=== PATIENT | female | born 1950 | race Caucasian/White ===

== ENCOUNTER 2018-07-11 02:50 | Inpatient (IN) ==
--- NOTE | 2018-07-02 08:28 | EKG Report ---
Test Performed on : 07/02/2018 08:12:01 AM Test Reason : PAT Blood Pressure : / mmHG Vent. Rate : 056 BPM Atrial Rate : 056 BPM P-R Int : 214 ms QRS Dur : 088 ms QT Int : 422 ms P-R-T Axes : 071 076 077 degrees QTc Int : 407 ms Sinus bradycardia. with 1st degree AV block. Minimal voltage criteria for LVH, may be normal variant Septal infarct , age undetermined Abnormal ECG When compared with ECG of 14-JAN-2015 18:34, Septal infarct is now present Nonspecific T wave abnormality no longer evident in Inferior leads Nonspecific T wave abnormality no longer evident in Lateral leads QT has shortened Confirmed by Eva WATSON, Mega Vora ([id number]) on 07/02/2018 8:43:10 AM
[2018-07-02 09:16] LABS: URINE SOURCE CLEAN CATCH
[2018-07-02 09:18] LABS: BASO# 0.03 X1000 (0.0-0.2); BASO% 0.4 % (0.0-0.8); EOS# 0.44 X1000 (0.0-0.7); EOS% 6.2 % (0.0-10.0); HEMATOCRIT 41.5 % (37.0-47.0); HEMOGLOBIN 13.5 g/dL (12.0-16.0); LYMPH# 1.45 X1000 (1.2-3.4); LYMPH% 20.4 % (20.5-51.1); MCH 29.8 PG (27-31); MCHC 32.5 g/dL (33-37); MCV 91.6 FL (81-99); MONO# 0.68 X1000 (0.11-0.59); MONO% 9.6 % (1.7-9.3); MPV 9.2 FL (7.4-10.4); NEUT# 4.52 X1000 (1.4-6.5); NEUT% 63.4 % (42.2-75.2); PLT 271 X1000 (130-400); RBC 4.53 XMIL (4.2-5.4); RDW 12.5 % (11.5-14.5); WBC 7.12 X1000 (4.8-10.8)
[2018-07-02 09:27] LABS: BILIRUBIN URINE NEGATIVE (NEGATIVE); BLOOD URINE NEGATIVE (NEGATIVE); COLOR YELLOW; GLUCOSE URINE NEGATIVE (NEGATIVE); KETONE URINE NEGATIVE (NEGATIVE); LEUKOCYTES URINE NEGATIVE (NEGATIVE); NITRITE URINE NEGATIVE (NEGATIVE); PROTEIN URINE TRACE mg/dL (NEGATIVE); SP GRAVITY URINE 1.014; TURBIDITY URINE CLEAR (CLEAR); UROBILINOGEN URINE NORMAL (NORMAL)
[2018-07-02 09:29] LABS: UR EPITHELIAL CELLS <10 /HPF (<10); URINE BACTERIA NEGATIVE /HPF; URINE RBC <10 /HPF (<10); URINE WBC <10 /HPF (<10)
[2018-07-02 09:31] LABS: INR 0.99; PROTIME 13.8 Seconds (11.0-16.0); PTT 26.1 Seconds (22.3-41.8)
[2018-07-02 09:58] LABS: AGAP 11; BUN 10 mg/dL (8-22); CHLORIDE 100 mmol/L (98-107); COSMO 273; CREATININE 0.7 mg/dL (0.5-0.9); ESTIMATED GFR > 60; GLUCOSE 102 mg/dL (70-104); POTASSIUM 4.5 mmol/L (3.5-5.1); SODIUM 137 mmol/L (136-145); TCO2 26 mmol/L (25-35)
[2018-07-11] MEDS ORDERED: REGLAN ONE (10:25)
[2018-07-11] MEDS ORDERED: LR 1,000 ML ONE (10:25)
[2018-07-11] MEDS ORDERED: COLACE ONE (10:25)
[2018-07-11] MEDS ORDERED: KEFZOL 1 GM/D5W 2 GM/100 ML IVPB ONE (10:25)
[2018-07-11] MEDS ORDERED: LYRICA ONE (10:25)
[2018-07-11] MEDS ORDERED: PEPCID ONE (10:25)
[2018-07-11] MEDS ORDERED: SENSORCAINE-MPF 0.5%/EPI 1:200,000 ONE (10:59)
[2018-07-11] MEDS ORDERED: DURAMORPH ONE (10:59)
[2018-07-11] MEDS ORDERED: EXPAREL 1.3% ONE (10:59)
[2018-07-11] MEDS ORDERED: CYKLOKAPRON 1,000 MG/NS 1,000 MG/100 ML IVPB ONE (10:59)
[2018-07-11] MEDS ORDERED: NEOSPORIN G.U. IRRIGANT ONE (10:59)
[2018-07-11] MEDS ORDERED: SODIUM CHLORIDE 0.9% ONE (10:59)
[2018-07-11] MEDS ORDERED: TORADOL ONE (10:59)
[2018-07-11] MEDS ORDERED: DIPRIVAN 1% 500 MG/50 ML BOTTLE ONE (11:36)
[2018-07-11] MEDS ORDERED: XYLOCAINE-MPF 2% ONE (12:30)
[2018-07-11] MEDS ORDERED: EPHEDRINE ONE (12:35)
[2018-07-11] MEDS ORDERED: DECADRON ONE (13:18)
[2018-07-11] MEDS ORDERED: ZOFRAN ONE (13:18)
[2018-07-11] MEDS ORDERED: OFIRMEV 1000 MG/ISOTONIC SOLN 1,000 MG/100 ML BOTTLE ONE (13:18)
[2018-07-11 14:10] LABS: URINE SOURCE CATH
[2018-07-11 14:22] LABS: BILIRUBIN URINE NEGATIVE (NEGATIVE); BLOOD URINE NEGATIVE (NEGATIVE); COLOR YELLOW; GLUCOSE URINE NEGATIVE (NEGATIVE); KETONE URINE TRACE mg/dL (NEGATIVE); LEUKOCYTES URINE NEGATIVE (NEGATIVE); NITRITE URINE NEGATIVE (NEGATIVE); PH URINE 6.5; PROTEIN URINE 30 mg/dL (NEGATIVE); TURBIDITY URINE CLEAR (CLEAR); UROBILINOGEN URINE NORMAL (NORMAL)
[2018-07-11 14:24] LABS: UR EPITHELIAL CELLS <10 /HPF (<10); URINE BACTERIA NEGATIVE /HPF; URINE RBC <10 /HPF (<10); URINE WBC <10 /HPF (<10)
[2018-07-11] MEDS ORDERED: NS 1,000 ML ONE (14:32)
[2018-07-11] MEDS ORDERED: ZOFRAN ODT PO PRN (15:45)
[2018-07-11] MEDS ORDERED: ZOFRAN IV PRN (15:45)
[2018-07-11] MEDS ORDERED: OXY IR PO PRN (15:45)
--- NOTE | 2018-07-11 17:55 | OPERATIVE NOTE ---
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 POSTOP DIAGNOSIS: Degenerative joint disease of the hip with impacted right femoral neck fracture. PROCEDURE: Direct anterior right total hip replacement. SURGEON: Jon Gomez MD. RESERVATION CLERK: FILIPPO Brown. Mr. Wade was necessary for proper retraction and manipulation of the hip during the surgery ANESTHESIA: Spinal. COMPLICATION: None. PROCEDURE IN DETAIL: 68-year-old female presents for surgical total hip replacement of the right hip. Risks, benefits, and no guarantees were discussed and she is willing to proceed. She was taken to the operating room and satisfactory anesthesia obtained. The right hip was prepped and draped in usual sterile fashion. A time-out was taken to confirm operative site, procedure, and patient. She was positioned on the [place] table and the right hip prepped and draped in usual sterile fashion. An anterior approach to the right hip was undertaken with an incision starting 1 cm distal and lateral to the anterior superior iliac spine and carried over the tensor fascia juan josé for 10 cm. Dissection was carried down through the skin and subcutaneous fat to the fascia of the tensor. This was split in line with the incision. Blunt dissection along the inner membrane of the tensor was undertaken down to the anterior hip capsule. Cobra retractors were placed over the superior and inferior aspect of the femoral neck and a capsulotomy incision made to expose the joint. The C-arm was used to establish an AP pelvis for referencing of leg lengths. Roughly half a centimeter of shortening of the leg was noted from previous impacted femoral neck fracture at this site. After establishing an AP pelvis, a femoral neck osteotomy was made and the femoral head removed. A small Cobra retractor was placed directly on the anterior acetabular bone to prevent injury to the anterior neurovascular structures during reaming and allow for visualization of the acetabulum. Sequential reaming up to a 55 reamer was undertaken. A DePuy DuoFix YOUNG coated 56 outer diameter cup was impacted into the acetabulum under fluoroscopic guidance in roughly 45 degrees of abduction and 10 to 15 degrees of anteversion with secure fixation. A 25 length screw was placed in the 12 o'clock position the cup for additional security. A 0 degree 36 mm inner diameter polyethylene bearing was impacted into the cup. The bearing cup interface was checked as well as cup bone interface and both noted to be stable. Traction was released off the leg and the hip extended and externally rotated to facilitate broaching of the proximal femur. Using the Waterfallis broach system, a sequential broaching of the proximal femur was undertaken up to a size 7 broach. A standard neck geometry with a +5 head length revealed religious of normal leg lengths as close to possible and good stability of the hip. The trial femoral implant was removed and an Actis size 7 stem was impacted in the proximal femur with secure axial and rotational stability. A 36 mm ceramic head with a +5 neck length was impacted onto this and the hip reduced. The C-arm was used to verify accurate geometry of the placement of the components as well as religious of leg lengths. The hip was extended all the way to the floor and externally rotated to 75 degrees without dislocation. The wound was copiously irrigated with irrigant. A Hemovac drain was placed. The joint capsule and skin was injected with Exparel for pain management. The wound was copiously irrigated with irrigant and then closed over the drain with a V-Loc running suture in the fascia of the tensor fascia, 2-0 suture in the subcutaneous and skin fabio on the skin edges. Sterile dressings completed the closure and the patient was recovered from anesthesia and transferred to the recovery room in stable condition. No intraoperative complications were noted. Instrument count and sponge count was correct at the time of closure. cc: Monty Gomez MD
[2018-07-11] MEDS ORDERED: CYKLOKAPRON 1,000 MG in NS 100 ML IV SCH (18:45)
[2018-07-11] MEDS: KEFZOL 2 GM in NS 100 ML IV SCH (19:00)
[2018-07-11] MEDS: TYLENOL PO SCH ×2 (19:00→22:21)
[2018-07-11] MEDS: COLACE PO SCH (22:21)
[2018-07-11] MEDS: PERIDEX MT SCH (22:21)
[2018-07-12] MEDS: NS 1,000 ML IV SCH ×2 (01:20→06:22)
[2018-07-12] MEDS: OXY IR PO PRN ×3 (02:48→13:01)
[2018-07-12] MEDS: ZOFRAN ODT PO PRN ×2 (02:49→09:25)
[2018-07-12] MEDS: KEFZOL 2 GM in NS 100 ML IV SCH (02:52)
[2018-07-12] MEDS: TYLENOL PO SCH ×2 (05:46→09:25)
[2018-07-12 06:28] LABS: HEMATOCRIT 36.3 % (37.0-47.0); HEMOGLOBIN 11.8 g/dL (12.0-16.0)
[2018-07-12 06:46] LABS: AGAP 9; BUN 12 mg/dL (8-22); CALCIUM 8.3 mg/dL (8.8-10.2); CHLORIDE 103 mmol/L (98-107); COSMO 278; CREATININE 0.6 mg/dL (0.5-0.9); ESTIMATED GFR > 60; GLUCOSE 138 mg/dL (70-104); POTASSIUM 4.7 mmol/L (3.5-5.1); SODIUM 138 mmol/L (136-145); TCO2 26 mmol/L (25-35)
[2018-07-12] MEDS ORDERED: ASPIRIN PO SCH (09:00)
[2018-07-12] MEDS ORDERED: MOBIC PO SCH (09:00)
[2018-07-12] MEDS: COLACE PO SCH (09:25)
[2018-07-12] MEDS: PERIDEX MT SCH (09:26)
--- NOTE | 2018-07-12 10:09 | PROGRESS NOTE ---
DATE: 07/12/2018 SUBJECTIVE: Ms. Rodriguez seen status post anterior hip replacement. At the present time, she is afebrile with stable vital signs. Her bandages are clean and dry. There are no signs of active bleeding. She appears to be motor and sensory intact. Her hematocrit is stable. She is mobilized with therapy today. She can be discharged home today for outpatient followup. She can return in the interim for any worsening signs or symptoms. She is discharged home with her regular medicines, aspirin once a day for DVT prophylaxis and [place] 7.5 as needed for pain. cc: Monty Gomez MD
[2018-07-12 12:13] VITALS: BP 107/75
== END 2018-07-12 14:00 | disposition home health service (06) | DRG 470 ==
LOC: SURHOLD 02:50 → 4N 15:13
PROVIDERS: ADMIT Orthopaedic Surgery Adult Reconstructive Orthopaedic Surgery; ATTEND Orthopaedic Surgery Adult Reconstructive Orthopaedic Surgery
CPT/HCPCS: 76000; 80048; 81001; 85014; 85018; 85025; 85610; 85730; 86850; 86900; 86901; 93005; 93010; 94761; 94799; 97161; 97530; A9270; C9290; J0131; J0690; J1100; J1885; J2274; J2275; J2405; J7030; J7120; Q9974

== ENCOUNTER 2018-09-09 14:10 | Inpatient (IN) ==
[2018-09-09 18:32] LABS: BASO# 0.03 X1000 (0.0-0.2); BASO% 0.6 % (0.0-0.8); EOS# 0.29 X1000 (0.0-0.7); HEMATOCRIT 41.1 % (37.0-47.0); HEMOGLOBIN 13.2 g/dL (12.0-16.0); LYMPH# 1.57 X1000 (1.2-3.4); LYMPH% 32.4 % (20.5-51.1); MCH 29.5 PG (27-31); MCHC 32.1 g/dL (33-37); MCV 91.9 FL (81-99); MONO# 0.51 X1000 (0.11-0.59); MONO% 10.5 % (1.7-9.3); MPV 10.3 FL (7.4-10.4); NEUT# 2.45 X1000 (1.4-6.5); NEUT% 50.5 % (42.2-75.2); PLT 241 X1000 (130-400); RBC 4.47 XMIL (4.2-5.4); RDW 12.7 % (11.5-14.5); WBC 4.85 X1000 (4.8-10.8)
[2018-09-09] MEDS: ROCEPHIN 1 GM in NS 50 ML IV SCH (18:37)
[2018-09-09] MEDS: LOVENOX SUBQ SCH (18:37)
[2018-09-09 18:57] LABS: AGAP 9; ALB/GLOB RATIO 1.2; ALBUMIN 3.7 g/dL (3.5-5.0); ALKALINE PHOSPHATASE 103 U/L (32-104); BUN 5 mg/dL (8-22); CALCIUM 9.1 mg/dL (8.8-10.2); CHLORIDE 104 mmol/L (98-107); COSMO 278; CREATININE 0.7 mg/dL (0.5-0.9); ESTIMATED GFR > 60; GLUCOSE 93 mg/dL (70-104); GOT 13 U/L (10-30); GPT 10 U/L (10-36); POTASSIUM 3.9 mmol/L (3.5-5.1); SODIUM 141 mmol/L (136-145); TCO2 28 mmol/L (25-35); TOTAL BILIRUBIN 0.45 mg/dL (0.20-1.00); TOTAL PROTEIN 6.9 g/dL (6.3-8.3)
[2018-09-09 19:28] LABS: URINE SOURCE CLEAN CATCH
[2018-09-09 19:32] LABS: BILIRUBIN URINE NEGATIVE (NEGATIVE); BLOOD URINE NEGATIVE (NEGATIVE); COLOR STRAW; GLUCOSE URINE NEGATIVE (NEGATIVE); KETONE URINE NEGATIVE (NEGATIVE); LEUKOCYTES URINE NEGATIVE (NEGATIVE); NITRITE URINE NEGATIVE (NEGATIVE); PROTEIN URINE NEGATIVE (NEGATIVE); TURBIDITY URINE CLEAR (CLEAR); UROBILINOGEN URINE NORMAL (NORMAL)
[2018-09-09 19:33] LABS: UR EPITHELIAL CELLS <10 /HPF (<10); URINE BACTERIA NEGATIVE /HPF; URINE RBC <10 /HPF (<10); URINE WBC <10 /HPF (<10)
[2018-09-09] MEDS: DUONEB (A & A) INH SCH (21:19)
[2018-09-09] MEDS: NS IV SCH (21:21)
[2018-09-09] MEDS: XANAX PO SCH (21:21)
[2018-09-09] MEDS: CLINDAMYCIN IV SCH (21:21)
[2018-09-10] MEDS: LOVENOX SUBQ SCH ×2 (06:05→17:08)
[2018-09-10] MEDS: PRILOSEC PO SCH (06:05)
--- NOTE | 2018-09-10 06:22 | Diag Imaging Result Doc PS360 ---
CHEST-2 VIEWS - 09/09/2018 INDICATION: dvt right leg COMPARISON: 11/06/2016 FINDINGS: There are some stable minimal linear scarring in the lateral right upper lobe. The lungs are clear. Heart size is normal. No pneumothorax or pleural effusion. IMPRESSION: Negative exam. Electronically signed by Stuart Recio 09/10/2018 6:20 AM
[2018-09-10] MEDS: ULTRAM PO SCH ×4 (06:33→21:33)
[2018-09-10] MEDS: DUONEB (A & A) INH SCH ×4 (07:28→20:04)
--- NOTE | 2018-09-10 08:51 | EKG Report ---
Test Performed on : 09/09/2018 6:10:44 PM Test Reason : dvt right leg Blood Pressure : / mmHG Vent. Rate : 065 BPM Atrial Rate : 065 BPM P-R Int : 214 ms QRS Dur : 104 ms QT Int : 450 ms P-R-T Axes : 076 052 079 degrees QTc Int : 468 ms Sinus rhythm. with 1st degree AV block. Left ventricular hypertrophy with repolarization abnormality Abnormal ECG When compared with ECG of 02-JUL-2018 08:12, Criteria for Septal infarct are no longer present ST now depressed in Lateral leads T wave inversion now evident in Lateral leads QT has lengthened Confirmed by Clem WATSON, Denis ([id number]) on 09/10/2018 8:56:23 AM
[2018-09-10] MEDS ORDERED: ZOFRAN IV PRN (08:57)
[2018-09-10] MEDS: NS IV SCH ×2 (09:02→21:34)
[2018-09-10] MEDS: CLINDAMYCIN IV SCH ×2 (09:02→21:34)
[2018-09-10] MEDS: LEXAPRO PO SCH (09:02)
[2018-09-10] MEDS: TENORMIN PO SCH (09:02)
[2018-09-10] MEDS: XANAX PO SCH ×2 (09:02→21:33)
--- NOTE | 2018-09-10 09:08 | PROGRESS NOTE ---
DATE: 09/10/2018 SUBJECTIVE: Ms. Chicas is doing somewhat better this morning. The leg edema is less. She has elastic stockings put in. She is on IV clindamycin, as well as Rocephin and Lovenox. We will continue the current management of her. cc: Denis Nj MD
[2018-09-10] MEDS: XARELTO PO SCH ×2 (09:24→21:33)
--- NOTE | 2018-09-10 09:29 | HISTORY AND PHYSICAL ---
HISTORY OF PRESENT ILLNESS: Mrs. Rodriguez is a 68-year-old white female was admitted because of cellulitis on both legs and deep vein thrombosis involving the right calf and right thigh veins. She had a right hip surgery following a fracture of the right hip about 6 weeks ago and thereafter she did well. However, she had a cat bite about 2 days ago at nighttime. She came and she had some cellulitis, was prescribed clindamycin. She had a right leg ultrasound done for to rule out DVT and was found to have DVT. The cellulitis was getting worse hence she came to the office. She had bilateral cellulitis more on the right and history of recent deep vein thrombosis. PAST SURGICAL HISTORY: Reveals history of left ankle fracture surgery. This was done by Dr. Gomez and right hip surgery was done by Dr. Gomez also. She also had a hysterectomy. She still smokes some, has mild COPD and has history of hypertension. Severe degenerative arthritis in both knees. She does not drink. She has a lot of pets in her house and stays busy taking care of them. REVIEW OF SYSTEMS: Other than swelling of the right leg with some discomfort, it is noncontributory. PHYSICAL EXAMINATION: The patient is alert. VITAL SIGNS: Reveal temperature 98.1 degrees Fahrenheit, pulse 66 per minute, respiratory rate 19 per minute, blood pressure 139/59. HEENT: Head normocephalic, pupils PERRLA. Fundus examination not done. NECK: Supple. JVP normal. ENT examination unremarkable. There is no evidence of lymphadenopathy, thyroid enlargement, anemia, cyanosis or clubbing. EXTREMITIES: Bilateral pedal edema, more on the right side, especially in the calf area. There is some redness of the skin which is tender and evidence of cellulitis in both legs more on the right side. I do not see any definite ulceration or puncture wound because of the cat bite. Pedal pulses well felt. BREAST EXAM: Normal chest normal on inspection. LUNGS: Clear on auscultation. PMI in the normal position. HEART: Sounds normal. No murmur, gallop or rub noted. ABDOMEN: Nondistended. Hernial orifices normal. No guarding, rigidity, free fluid, masses, or organomegaly. Bowel sounds normal. RECTAL: Deferred. SOFTWARE DEVELOPMENT INTERN: Higher functions normal. Cranial nerves normal. Motor and sensory system examination unremarkable. Deep tendon reflexes normal. Plantar is downgoing and spine examination normal for age. No cerebellar signs or signs of meningeal irritation local motor exam. SKIN: Unremarkable except for cellulitis. IMPRESSION: 1. Bilateral leg cellulitis. 2. Deep venous thrombosis in the right leg and right thigh veins. 3. Hypertension. 4. Degenerative arthritis. 5. Mild chronic obstructive pulmonary disease. cc: Denis Nj MD
[2018-09-10] MEDS: ROCEPHIN 1 GM in NS 50 ML IV SCH (17:07)
[2018-09-11] MEDS: LOVENOX SUBQ SCH ×2 (06:30→17:57)
[2018-09-11] MEDS: PRILOSEC PO SCH (06:30)
[2018-09-11] MEDS: DUONEB (A & A) INH SCH ×4 (07:28→20:02)
[2018-09-11] MEDS: CLINDAMYCIN IV SCH ×2 (09:26→21:00)
[2018-09-11] MEDS: NS IV SCH ×2 (09:26→21:00)
[2018-09-11] MEDS: XANAX PO SCH ×2 (09:27→20:48)
[2018-09-11] MEDS: ULTRAM PO SCH ×3 (09:27→20:49)
[2018-09-11] MEDS: TENORMIN PO SCH (09:27)
[2018-09-11] MEDS: LEXAPRO PO SCH (09:27)
[2018-09-11] MEDS: XARELTO PO SCH ×2 (09:27→20:48)
--- NOTE | 2018-09-11 09:28 | PROGRESS NOTE ---
DATE: 09/11/2018 Ms. Rodriguez is feeling better. She has some itching underneath the elastic stockings at the area of cellulitis. Leg edema is better. We are going to continue the current management on her. We will apply skin cream twice a day. IMPRESSION: DVT. Right leg cellulitis both legs. cc: Denis Nj MD
[2018-09-11] MEDS: ROCEPHIN 1 GM in NS 50 ML IV SCH (17:57)
[2018-09-11] MEDS: VALISONE 0.1% CREAM TOP SCH (20:50)
[2018-09-12] MEDS: LOVENOX SUBQ SCH (06:41)
[2018-09-12] MEDS: PRILOSEC PO SCH (06:42)
[2018-09-12] MEDS: LEXAPRO PO SCH (09:01)
[2018-09-12] MEDS: ULTRAM PO SCH (09:01)
[2018-09-12] MEDS: TENORMIN PO SCH (09:01)
[2018-09-12] MEDS: XANAX PO SCH (09:01)
[2018-09-12] MEDS: NS IV SCH (09:01)
[2018-09-12] MEDS: XARELTO PO SCH (09:01)
[2018-09-12] MEDS: CLINDAMYCIN IV SCH (09:01)
[2018-09-12] MEDS: VALISONE 0.1% CREAM TOP SCH (09:02)
[2018-09-12] MEDS: DUONEB (A & A) INH SCH (09:10)
--- NOTE | 2018-09-12 12:15 | PROGRESS NOTE ---
DATE: 09/12/2018 SUBJECTIVE: Ms. Keiko Brandon is doing better. The leg swelling is better. Cellulitis has improved. I am going to discharge her with a prescription of Xarelto and Levaquin. She will use ProAir HFA as a rescue inhaler and she will be discharged today. We will see her in the office in about 5 days. cc: Denis Nj MD
[2018-09-12] MEDS ORDERED: PNEUMOVAX 23 IM ONE (12:24)
--- NOTE | 2018-09-12 12:39 | DISCHARGE SUMMARY ---
ADMISSION DATE: 09/09/2018 DISCHARGE DATE: 09/12/2018 Ms. Rodriguez was admitted with bilateral cellulitis of both legs and a DVT on the right leg. She had DVT in the thigh as well as calf veins on the right leg. Prior to this, she had a right hip replacement. COURSE: In the hospital, she was placed on 60 mg twice a day of Lovenox and Xarelto was started the next day. She was given IV ceftriaxone for about 3 days and clindamycin was also started. She will be continued on clindamycin at home. We will also put her on Xarelto 15 mg b.i.d. She will use the inhalers at home for her COPD. FINAL DIAGNOSIS: 1. Deep venous thrombosis, right leg. 2. Bilateral cellulitis. 3. Chronic obstructive pulmonary disease. 4. Carotid artery disease. 5. Recent history of right hip replacement. Elastic stockings were given to her, and she will be seen in the office in about 5 days. cc: Denis Nj MD
[2018-09-12 12:59] VITALS: BP 141/98
[2018-09-12] MEDS ORDERED: PREVNAR 13 IM ONE (13:13)
== END 2018-09-12 13:53 | disposition home or self-care (01) | DRG 603 ==
LOC: DIRADM 14:10 → 3N 15:22
PROVIDERS: ADMIT Internal Medicine; ATTEND Internal Medicine
CPT/HCPCS: 71020; 71046; 80053; 81001; 85025; 85379; 85610; 90670; 93005; 93010; 93971; 94640; 94761; 96372; 99283; A9270; J0696; J1650; J2405; S0077